=== PATIENT | female | born 1975 | race Caucasian/White ===

== ENCOUNTER 2017-01-13 18:26 | Emergency (ER) | payer SELFPAY ==
[~2017-01-13] VITALS: Ht 157.5 cm; Wt 90.7 kg
[~2017-01-13 18:26] MED LIST: GABA600T PO; MELO-105 PO; TRAM50TA2 PO
--- NOTE | 2017-01-13 19:18 | NUR ---
Patient discharged to home in stable conditon. Written and verbal after care instructions given. Patient verbalizes understanding of instructions.
== END 2017-01-13 19:19 | disposition home or self-care (01) ==
LOC: ER 18:31
DX: L02.415 Cutaneous abscess of right lower limb (principal); F17.200 Nicotine dependence, unspecified, uncomplicated
CPT/HCPCS: A4663

== ENCOUNTER 2021-10-05 11:51 | Emergency (ER) | payer MEDICAID ==
[~2021-10-05] VITALS: Ht 162.6 cm; Wt 97.5 kg
--- NOTE | 2021-10-05 12:15 | NUR ---
LAB at bedside performing blood draw
--- NOTE | 2021-10-05 12:18 | NUR ---
xray at bedside
[2021-10-05 12:40] LABS: HEMATOCRIT 43.1 % (31.2-41.9); MEAN CORPUSCULAR HEMOGLOBIN 32.2 uug (24.7-32.8); MEAN CORPUSCULAR VOLUME 92.9 fL (75.5-95.3); PLATELET COUNT (AUTO) 224 K/uL (179-408)
[2021-10-05 12:51] LABS: ALANINE AMINOTRANSFERASE 19 U/L (14-59); ALKALINE PHOSPHATASE 75 U/L (50-136); ASPARTATE AMINOTRANSFERASE 9 U/L (15-37); BILIRUBIN,DIRECT 0.1 mg/dL (0.0-0.2); BILIRUBIN,TOTAL 0.3 mg/dL (0.2-1.0); CARBON DIOXIDE 29 mmol/L (21-32); CHLORIDE 103 mmol/L (98-107); CREATININE 0.9 mg/dL (0.6-1.3); GLUCOSE 127 mg/dL (74-106); POTASSIUM 4.3 mmol/L (3.5-5.1); TOTAL PROTEIN, SERUM 6.9 g/dL (6.4-8.2); UREA NITROGEN, BLOOD 16 mg/dL (7-18)
--- NOTE | 2021-10-05 13:07 | NUR ---
Patient transported to imaging for CT
--- NOTE | 2021-10-05 13:21 | NUR ---
patient returned to room from CT
[2021-10-05] MEDS ORDERED: CYCL5TAB PO (14:42)
[2021-10-05] MEDS ORDERED: NAPR-1192 PO (14:42)
[2021-10-05 14:52] VITALS: BP 116/89
--- NOTE | 2021-10-05 14:52 | NUR ---
Patient discharged to home in stable condition. Written and verbal after care instructions given. Patient verbalizes understanding of instructions. Stressed follow up or return to ER for worsening s/s.
== END 2021-10-05 14:53 | disposition home or self-care (01) ==
LOC: ER 11:51
DX: M54.16 Radiculopathy, lumbar region (principal); R20.0 Anesthesia of skin; M48.061 Spinal stenosis, lumbar region without neurogenic claudication; M43.16 Spondylolisthesis, lumbar region; Z86.718 Personal history of other venous thrombosis and embolism; F40.240 Claustrophobia
CPT/HCPCS: 36415; 71045; 72131; 84484; 85025; 93005; A4663

== ENCOUNTER 2023-08-21 19:29 | Emergency (ER) | payer MEDICAID ==
[~2023-08-21] VITALS: Ht 160 cm; Wt 107.0 kg
[~2023-08-21 19:29] MED LIST changes: +CYCL5TAB PO; -GABA600T PO; -MELO-105 PO; +NAPR-1192 PO; -TRAM50TA2 PO
[2023-08-21] MEDS: ASPIRIN 81 MG TAB.CHEW PO ONE (20:05)
[2023-08-21] MEDS ORDERED: ASPIRIN 81 MG TAB.CHEW ONE (20:05)
[2023-08-21 20:18] LABS: BASOPHILS # (AUTO) 0.1 K/UL (0.0-0.2); BASOPHILS % (AUTO) 1.1 % (0.0-2.0); EOSINOPHILS # (AUTO) 0.3 K/uL (0.0-0.7); EOSINOPHILS % (AUTO) 2.9 % (0.0-7.0); HEMATOCRIT 41.8 % (31.2-41.9); HEMOGLOBIN 14.2 g/dL (10.9-14.3); LYMPHOCYTES # (AUTO) 3.5 K/uL (0.8-4.8); LYMPHOCYTES % (AUTO) 38.9 % (20.5-51.5); MEAN CORPUSCULAR HEMOGLOBIN 30.4 uug (24.7-32.8); MEAN CORPUSCULAR HGB CONC 34 g/dL (32.3-35.6); MEAN CORPUSCULAR VOLUME 89.9 fL (75.5-95.3); MONOCYTES # (AUTO) 0.8 K/uL (0.1-1.30); MONOCYTES % (AUTO) 8.8 % (0.0-11.0); NEUTROPHILS # (AUTO) 4.4 K/uL (1.8-8.9); NEUTROPHILS % (AUTO) 48.3 % (38.5-71.5); PLATELET COUNT (AUTO) 215 K/uL (179-408); RED BLOOD CELL COUNT(AUTO) 4.65 MIL/uL (3.63-4.92); RED CELL DISTRIBUTION WIDTH 14.2 % (12.3-17.7); WHITE BLOOD COUNT (AUTO) 9.1 K/uL (3.8-11.8)
[2023-08-21 20:23] LABS: DIFFERENTIAL COMMENT 1
[2023-08-21 20:27] LABS: CALCIUM 9.7 mg/dL (8.5-10.1); CARBON DIOXIDE 28 mmol/L (21-32); CHLORIDE 103 mmol/L (98-107); GLUCOSE 77 mg/dL (74-106); POTASSIUM 4.2 mmol/L (3.5-5.1); SODIUM SERUM 138 mmol/L (136-145); UREA NITROGEN, BLOOD 25 mg/dL (7-18)
[2023-08-21 20:41] LABS: ALANINE AMINOTRANSFERASE 16 U/L (14-59); ALBUMIN 3.9 g/dL (3.4-5.0); ALKALINE PHOSPHATASE 92 U/L (50-136); ASPARTATE AMINOTRANSFERASE 5 U/L (15-37); BILIRUBIN,DIRECT 0.1 mg/dL (0.0-0.2); BILIRUBIN,TOTAL 0.3 mg/dL (0.2-1.0); NT-PRO BNP 37 pg/mL (0-125); TOTAL PROTEIN, SERUM 7.3 g/dL (6.4-8.2)
[2023-08-21 23:47] VITALS: BP 108/83; O2SAT 99
== END 2023-08-21 23:21 | disposition home or self-care (01) ==
LOC: ER 19:31
DX: R07.89 Other chest pain (principal); R10.2 Pelvic and perineal pain; F17.210 Nicotine dependence, cigarettes, uncomplicated; Z98.890 Other specified postprocedural states; Z79.899 Other long term (current) drug therapy; Z88.1 Allergy status to other antibiotic agents
CPT/HCPCS: 36415; 71045; 84484; 85025; 93005; A4606; A4663

== ENCOUNTER 2024-04-23 15:44 | Emergency (ER) | payer MEDICAID | END 2024-04-23 17:16 | disposition left against medical advice (07) | LOC: ER 15:44 | DX: M79.10 Myalgia, unspecified site (principal); Z53.21 Procedure and treatment not carried out due to patient leaving prior to being seen by health care provider ==

== ENCOUNTER 2024-04-25 10:44 | Emergency (ER) | payer MEDICAID ==
[~2024-04-25] VITALS: Ht 162.6 cm; Wt 111.1 kg
[2024-04-25 12:32] LABS: BASOPHILS # (AUTO) 0.1 K/UL (0.0-0.2); BASOPHILS % (AUTO) 1.4 % (0.0-2.0); EOSINOPHILS # (AUTO) 0.2 K/uL (0.0-0.7); EOSINOPHILS % (AUTO) 2.9 % (0.0-7.0); HEMATOCRIT 38.9 % (31.2-41.9); HEMOGLOBIN 13.2 g/dL (10.9-14.3); LYMPHOCYTES # (AUTO) 2.7 K/uL (0.8-4.8); LYMPHOCYTES % (AUTO) 46.7 % (20.5-51.5); MEAN CORPUSCULAR HEMOGLOBIN 31.4 uug (24.7-32.8); MEAN CORPUSCULAR HGB CONC 34 g/dL (32.3-35.6); MEAN CORPUSCULAR VOLUME 92.5 fL (75.5-95.3); MONOCYTES # (AUTO) 0.3 K/uL (0.1-1.30); MONOCYTES % (AUTO) 4.5 % (0.0-11.0); NEUTROPHILS # (AUTO) 2.6 K/uL (1.8-8.9); NEUTROPHILS % (AUTO) 44.5 % (38.5-71.5); PLATELET COUNT (AUTO) 175 K/uL (179-408); RED CELL DISTRIBUTION WIDTH 14.4 % (12.3-17.7); WHITE BLOOD COUNT (AUTO) 5.7 K/uL (3.8-11.8)
[2024-04-25 12:48] LABS: CALCIUM 9.1 mg/dL (8.5-10.1); CREATININE 0.8 mg/dL (0.6-1.3); MAGNESIUM 2.1 mg/dL (1.8-2.4); POTASSIUM 4.4 mmol/L (3.5-5.1)
[2024-04-25 12:58] LABS: DIFFERENTIAL COMMENT 1
[2024-04-25 14:16] VITALS: BP 135/77; O2SAT 97
== END 2024-04-25 14:17 | disposition home or self-care (01) ==
LOC: ER 10:44
DX: M54.50 Low back pain, unspecified (principal); M79.605 Pain in left leg; I10 Essential (primary) hypertension; Z79.899 Other long term (current) drug therapy; Z88.7 Allergy status to serum and vaccine; Z88.8 Allergy status to other drugs, medicaments and biological substances; Z91.041 Radiographic dye allergy status
CPT/HCPCS: 36415; 83735; 85025; A4606; A4663